=== PATIENT | female | born 1955 ===

== ENCOUNTER 2022-11-06 10:05 | Inpatient (IN) | payer OTHER ==
[~2022-11-06] VITALS: Ht 152.4 cm; Wt 56.7 kg
[2022-11-07] MEDS ORDERED: SYNTHROID50 MCG PO (08:47)
[2022-11-07] MEDS ORDERED: BENICAR HCT 201 EACH PO (08:48)
[2022-11-07] MEDS ORDERED: CRESTOR10 MG PO (08:48)
[2022-11-11] MEDS ORDERED: ROSUVASTATIN CAL5 MG (07:56)
[2022-11-11] MEDS ORDERED: ROSUVASTATIN CA10 MG (07:57)
[2022-11-13] MEDS ORDERED: XARELTO10 MG PO (06:35)
[2022-11-13] MEDS ORDERED: INTEGRA PLUS C1 EACH PO (06:35)
[2022-11-13] MEDS ORDERED: OXYC1TAB9 PO (06:35)
[2022-11-13] MEDS ORDERED: BACTRIM DS TAB1 EACH PO (06:35)
== END 2022-11-13 13:59 | DRG 470 ==
LOC: SURH 11-11 05:15 → O/R 11-11 05:15 → SURG 11-11 07:00 → SURH 11-11 11:03
PROVIDERS: ADMIT Orthopaedic Surgery Sports Medicine; ATTEND Orthopaedic Surgery Sports Medicine
PROC: 0SRD0J9 Replacement of Left Knee Joint with Synthetic Substitute, Cemented, Open Approach (ICD-10-PCS; principal; 2022-11-11 07:00)
DX: M17.12 Unilateral primary osteoarthritis, left knee (principal); I10 Essential (primary) hypertension; E03.9 Hypothyroidism, unspecified; Z20.822 Contact with and (suspected) exposure to COVID-19